=== PATIENT | male | born 1985 | race Caucasian/White ===

== ENCOUNTER 2021-03-29 18:25 | Emergency (ER) | payer SELFPAY ==
[~2021-03-29] VITALS: Ht 170.2 cm; Wt 69.0 kg
[2021-03-29 18:29] VITALS: BP 146/88
== END 2021-03-29 21:10 | disposition left against medical advice (07) ==
LOC: ER 18:25
DX: Z53.21 Procedure and treatment not carried out due to patient leaving prior to being seen by health care provider (principal)